=== PATIENT | female | born 1945 | race Caucasian/White ===

== ENCOUNTER 2016-09-17 08:42 | Inpatient (IN) ==
--- NOTE | 2016-09-17 09:23 | Emergency Department Note ---
Syncope HPI - General Chief Complaint: Dizziness Stated Complaint: Dizziness Time Seen by Provider: 09/17/16 09:07 Source: patient, family Mode of arrival: wheelchair Limitations: no limitations - History of Present Illness HPI Narrative: 71-year-old female with seven-day history of flulike illness. Went to the emergency department in [facility] while visiting her other daughter they prescribed her Tamiflu. She has not been getting much better though she complains of lightheadedness and headache pressure and head. No current cough or coryza or fever. Her daughter reports that she is becoming more forgetful and she's lost 20-30 pounds not eating well. She has a prior history of hypertension but is not currently taking her medicines as her blood pressure has been normal - Related Data Home Medications Medication Instructions Recorded Confirmed Losartan/Hydrochlorothiazide 1 each PO DAILY 04/02/16 09/17/16 [Losartan-Hctz 100-12.5 mg Tab] Atorvastatin [Lipitor] 80 mg PO HS 09/17/16 09/17/16 Allergies Allergy/AdvReac Type Severity Reaction Status Date / Time No Known Drug Allergies Allergy Verified 09/17/16 08:46 Review of Systems All systems ED: reviewed and negative except as stated. Past Medical History - Past Medical History Attestation: Yes: The following information was validated with the patient. Medical history: Reports: DVT (used to be on Coumadin), hyperlipidemia, hypertension Surgical history ED: Reports: - Social History smoking status: Never smoker Physical Exam Normocephalic atraumatic. Conjunctiva clear sclerae white and anicteric. No nasal discharge or congestion. Oropharynx is pink and moist. Bilateral tympanic membranes are normal with copious cerumen. Neck is supple without lymphadenopathy or thyromegaly. Heart is somewhat irregular rhythm without significant murmur. Lungs are clear to auscultation bilaterally without wheezes rales rhonchi or respiratory distress. +2 radial pulse. She does have slightly more edema on the left leg than the right but this is just trace. She is alert and oriented. Adequate strength bilateral arms and legs. Face is symmetrical does no dysarthria tremor or ataxia. Cranial nerves II through XII are grossly intact. She does seem to have some short-term memory issues having to rely on her children for her history - General Limitations: no limitations Course Vital Signs Temperature 96.7 F L 09/17/16 08:43 Pulse Rate 61 09/17/16 08:43 Respiratory Rate 16 09/17/16 08:43 Blood Pressure 107/57 09/17/16 08:43 Pulse Oximetry (%) 99 09/17/16 08:43 Temperature 96.7 F L 09/17/16 08:43 Pulse Rate 140 H 09/17/16 10:35 Respiratory Rate 16 09/17/16 08:43 Blood Pressure 125/84 09/17/16 10:35 Pulse Oximetry (%) 99 09/17/16 10:35 Syncope - Lab Data Lab results reviewed: Yes I reviewed the patient's lab results. Result diagrams: 09/17/16 09:31 Lab Results 09/17/16 09/17/16 Range/Units 09:30 09:31 WBC 8.1 (4.5-11.0) K/mcL RBC 4.11 (4.00-5.20) M/mcL Hgb 11.8 L (12.0-15.0) g/dL Hct 36.0 (36.0-48.0) % POC Hct 37.0 (36.0-48.0) % MCV 87.7 (80.0-100.0) fL MCH 28.7 (26.0-34.0) pg MCHC 32.8 (31.0-36.0) g/dL RDW 13.1 (11.5-14.5) % Plt Count 387 (140-440) K/mcL MPV 8.3 (7.4-10.4) fL Gran % 63.6 (38.0-78.0) % Lymph % (Auto) 27.6 (15.5-49.0) % [place] % (Auto) 7.9 (1.0-9.0) % Eos % (Auto) 0.6 (0.0-7.0) % Baso % (Auto) 0.3 (0.0-2.0) % Gran # 5.1 (1.8-8.0) K/mcL Lymph # 2.2 (1.5-4.8) K/mcL [place] # 0.6 (0.1-0.9) K/mcL Eos # 0.1 (0.0-0.7) K/mcL Baso # 0 (0.0-0.3) K/mcL POC Sodium 138 (133-145) mmol/L POC Potassium 3.4 (3.3-5.1) mmol/L POC Chloride 100 (96-108) mmol/L POC Total CO2 26 (22-30) mmol/L POC BUN 28 H (8-23) mg/dl POC Creatinine 1.1 (0.6-1.1) mg/dl POC Glucose 110 H (70-105) mg/dL POC WB Ioniz Calcium 1.07 L (1.16-1.32) mmol/L - Radiology Data Radiology results reviewed: Yes I reviewed the patient's radiology results. CT scan of the head shows no acute abnormality but small old infarcts - EKG Data EKG attestation: Yes I reviewed and interpreted this EKG. EKG results narrative: EKG shows a rate of 161 with atrial fibrillation no sign of ischemia Rate: tachycardia Rhythm: A.Fib Disposition Clinical Impression: Influenza A, Atrial fibrillation with RVR Summary: She is already on Tamiflu for influenza diagnosed in [facility]. Found to be in atrial fibrillation with rapid ventricular response. Did not respond completely to max dose diltiazem drip so added metoprolol. start eliquis. Cannot cardiovert because it's not clear how long she's been in atrial fibrillation Discussed case with hospitalist Dr. Pulliam who agreed to accept patient for further care and evaluation Disposition: Xfer As Inpt ([facility]) Condition: Serious Referrals: Jose Alberto Read MD [Primary Care Provider] - Aron Avelar MD [Physician] -
[2016-09-17] MEDS ORDERED: APIXABAN 5 MG TABLET PO ONE (09:30)
[2016-09-17] MEDS ORDERED: DILTIAZEM 125 MG in 0.9 % SODIUM CHLORIDE 100 ML IV SCH (09:30)
[2016-09-17 10:12] LABS: Basophils # (Auto) 0 K/mcL (0.0-0.3); Basophils % (Auto) 0.3 % (0.0-2.0); Eosinophils # (Auto) 0.1 K/mcL (0.0-0.7); Eosinophils % (Auto) 0.6 % (0.0-7.0); Granulocytes % (Auto) 63.6 % (38.0-78.0); Lymphocytes # (Auto) 2.2 K/mcL (1.5-4.8); Lymphocytes % (Auto) 27.6 % (15.5-49.0); Mean Cell Volume 87.7 fL (80.0-100.0); Mean Corpuscular HGB Conc 32.8 g/dL (31.0-36.0); Mean Corpuscular Hemoglobin 28.7 pg (26.0-34.0); Monocytes # (Auto) 0.6 K/mcL (0.1-0.9); Monocytes % (Auto) 7.9 % (1.0-9.0); Platelet Count 387 K/mcL (140-440); RBC 4.11 M/mcL (4.00-5.20); Red Cell Distribution Width 13.1 % (11.5-14.5)
--- NOTE | 2016-09-17 10:30 | Cat Scan Report ---
CLINICAL INFORMATION: There the COMPARISON: None. TECHNIQUE: 2.5 mm helical slices were obtained in the skull base to vertex. Following reconstruction, axial reformatted images were reviewed at bone and parenchymal windows. FINDINGS: The ventricles, sulci, fissures, and cisterns are symmetrically enlarged compatible with mild age-related atrophy - no extra-axial fluid collections or masses are appreciated. Small remote cortical-based infarcts in the the posterior left frontal lobe, the parafalcine right frontal lobe and the right occipital lobe are appreciated noted. There are patchy chronic ischemic changes in the the cerebral white matter. A few remote lacunar infarcts in the basal ganglia and the cerebral white matter are also appreciated. There is no intracerebral hemorrhage, mass effect or edema. Bone windows show no osseous abnormality IMPRESSION: No acute cerebral hemorrhage or other acute finding. Chronic findings - as described. Interpreted and Authenticated by: Cr Beard 09/17/16
[2016-09-17] MEDS ORDERED: METOPROLOL TARTRATE 5 MG/5 ML VIAL IV ONE (11:12)
[2016-09-17] MEDS: METOPROLOL TARTRATE 5 MG/5 ML VIAL IV SCH ×5 (11:39→14:25)
--- NOTE | 2016-09-17 11:40 | XRay Report ---
CLINICAL INFORMATION: Weakness and dizziness COMPARISON: None. FINDINGS: Small hiatal hernia is appreciated. The remaining cardiomediastinal silhouette and pulmonary vessels are normal. The lungs are clear. No effusions. There is a 1 cm calcification triangulated over the right renal pelvis which may represent a stone IMPRESSION: 1. No acute cardiopulmonary disease 2. Small hiatal hernia 3. 1 cm calcification right upper quadrant of the abdomen - likely a stone in the right renal pelvis Interpreted and Authenticated by: Cr Beard 09/17/16
[2016-09-17] MEDS ORDERED: ONDANSETRON 4 MG/2 ML VIAL IV PRN (12:57)
[2016-09-17] MEDS ORDERED: IPRATROPIUM/ALBUTEROL 3 ML AMPUL.NEB NEB PRN (12:57)
[2016-09-17] MEDS ORDERED: ACETAMINOPHEN 325 MG TABLET PO PRN (12:57)
[2016-09-17] MEDS ORDERED: POTASSIUM CHLORIDE 20 MEQ PACKET PO PRN (12:57)
[2016-09-17] MEDS ORDERED: MAGNESIUM SULFATE 2 GM/50 ML BAG IV PRN (12:57)
[2016-09-17] MEDS ORDERED: ACETAMINOPHEN 1,000 MG/100 ML BOTTLE IV PRN (12:57)
[2016-09-17] MEDS ORDERED: guaiFENesin/CODEINE 10 ML UDC PO PRN (12:57)
[2016-09-17 13:27] LABS: C-Reactive Protein 7.8 mg/dl (0.0-0.8)
--- NOTE | 2016-09-17 13:31 | History and Physical Report ---
DATE OF ADMISSION: 09/17/2016 REASON FOR ADMISSION: Palpitation, weakness, lightheadedness. HISTORY OF CHIEF COMPLAINT: The patient is a 71-year-old who was recently diagnosed with influenza and pneumonia and came back from [place] after she had been recovering on Tamiflu. However, over the last 24 hours, the patient has been getting increasingly lightheaded, dizzy and has inability to function. She does not endorse to high grade fever, diarrhea or dysuria, but endorses lack of appetite. No vision change or unilateral weakness. She further denies diarrhea, incontinence, vision changes. Initial evaluation in the ER revealed atrial fibrillation with rapid ventricular rate over 140. Patient was started on diltiazem drip. However, there was inadequate response to 20 mg diltiazem drip, and subsequently patient received one dose of metoprolol with improved rate control around 120. Hospitalist Service was consulted. At the time of examination, the patient is alert and oriented. She was able to provide most of the history. She denies nausea or vomiting. She denies recent changes in medications, weight loss, heat intolerance. She denies prior similar episodes. REVIEW OF SYSTEMS: Ten-point review of system was performed and negative except the ones discussed above. PAST MEDICAL HISTORY: 1. Hypertension. 2. Hyperlipidemia. 3. History of DVT. Patient had been on Coumadin in the past. CURRENT MEDICATIONS: 1. Losartan/hydrochlorothiazide 20/12.5 mg daily. 2. Atorvastatin 80 mg daily. SOCIAL HISTORY: No history of smoking or alcoholism. Patient is . She has a son who lives in [place]. She is a FULL CODE STATUS. She sees primary care physician, Dr. Read. ALLERGIES: None. PHYSICAL EXAMINATION: GENERAL: The patient is alert and oriented. Thin. BMI 18.9. Height 5 feet 4 inches. VITAL SIGNS: Blood pressure 108/87, respiratory rate 14, temperature 96.7, pulse down from 140s to 110, irregular, sats 98% on room air. HEENT: Pupils symmetric. Oral cavity is dry. No ear or nose discharge. Head is normocephalic and atraumatic. NECK: No lymphadenopathy. JVD noted mid neck. HEART: S1, S2, regular rhythm. No murmur. CHEST: Clear to auscultation. ABDOMEN: Soft and nontender. LOWER EXTREMITIES: No cyanosis or clubbing. No joint swelling. Dry skin, but no lymphedema. SKIN: Otherwise, no suspicious lesions. PSYCHIATRIC: Alert and cooperative. No anxiety. NEURO: Nonfocal. LABS AND IMAGING: White count 8.1, hemoglobin 11.8, platelets 387. Sodium 130, potassium 2.4, creatinine 1.1, and BUN 28. X-ray chest unremarkable. EKG: Atrial fibrillation with RVR. Head CT: No acute process. ASSESSMENT AND PLAN: A 71-year-old with recent influenza admitted with atrial fibrillation with RVR. 1. Atrial fibrillation with RVR. Unclear etiology, possibly triggered by acute influenza. However, rule out cardiac etiology. Echocardiogram to evaluate valvular and left atrial architecture. TSH to rule out hypothyroidism. No recent medications that can be attributed to present symptoms. The patient's CHADS score is 2, mandating anticoagulation. The patient was already started on Eliquis by ER physician, Dr. Rios. Stroke risk was assessed and explained to the patient and need for long-term anticoagulation if patient does not convert to normal sinus. 3. History of hypertension. Continue prior home medication. 4. Hyperlipidemia. Continue statin. PLAN FOR TODAY: 1. Admit as inpatient. 2. Rate control measures. 3. Echocardiogram. 4. Anticoagulation for CVA prophylaxis. 5. Telemetry monitoring. 6. Preexisting medical condition management as above. AA:jean paul Job ID: [id number] Doc ID: [id number] Aron Read MD
[2016-09-17] MEDS: 0.9 % SODIUM CHLORIDE 10 ML SYRINGE IV SCH ×2 (14:00→21:21)
[2016-09-17] MEDS ORDERED: METOPROLOL TARTRATE 25 MG TABLET PO ONE (16:17)
[2016-09-17] MEDS ORDERED: traZODone HCL 50 MG TABLET PO PRN (21:00)
[2016-09-17] MEDS: DILTIAZEM 125 MG in 0.9 % SODIUM CHLORIDE 100 ML IV SCH (21:17)
[2016-09-17] MEDS: APIXABAN 5 MG TABLET PO SCH (21:21)
[2016-09-17] MEDS: ATORVASTATIN 40 MG TABLET PO SCH (21:21)
[2016-09-17] MEDS: DOCUSATE SODIUM 100 MG CAPSULE PO SCH (21:21)
[2016-09-17] MEDS: SENNOSIDES/DOCUSATE SODIUM 1 TAB TABLET PO SCH (21:21)
[2016-09-17] MEDS: OSELTAMIVIR PHOSPHATE 75 MG CAPSULE PO SCH (21:21)
[2016-09-18] MEDS: METOPROLOL TARTRATE 25 MG TABLET PO SCH ×3 (01:08→20:23)
[2016-09-18] MEDS ORDERED: DILTIAZEM 125 MG/25 ML VIAL IV ONE (02:48)
[2016-09-18 05:18] LABS: Mean Cell Volume 87.8 fL (80.0-100.0); Mean Corpuscular HGB Conc 32.6 g/dL (31.0-36.0); Mean Corpuscular Hemoglobin 28.6 pg (26.0-34.0); Platelet Count 328 K/mcL (140-440); RBC 3.68 M/mcL (4.00-5.20); Red Cell Distribution Width 12.5 % (11.5-14.5)
[2016-09-18 05:38] LABS: ALT/SGPT 44 U/l (0-40); Albumin 3.2 gm/dL (3.2-5.2); Albumin/Globulin Ratio 1.1 (1.0-2.3); Alkaline Phosphatase 134 U/L (39-117); Bilirubin,Direct < 0.2 mg/dL (0.0-0.3); Blood Urea Nitrogen 20 mg/dl (8-23); Gamma Glutamyl Transpeptidase 75 U/L (5-36); Magnesium 1.9 mg/dL (1.6-2.5); Phosphorous 2.5 mg/dL (2.7-4.5); Uric Acid 3.3 mg/dL (2.5-8.0)
[2016-09-18 06:05] LABS: Lymphocytes % 30 % (15-49); Monocytes % (Manual) 5 % (1-9); Platelet Estimate NORMAL (NORMAL); RBC Morphology NORMAL (NORMAL); Segmented Neutrophils % 65 % (38-78)
[2016-09-18] MEDS: DILTIAZEM 125 MG in 0.9 % SODIUM CHLORIDE 100 ML IV SCH ×2 (07:15→09:05)
[2016-09-18] MEDS ORDERED: HYDROCHLOROTHIAZIDE 12.5 MG CAPSULE PO SCH (09:00)
[2016-09-18] MEDS: DOCUSATE SODIUM 100 MG CAPSULE PO SCH ×2 (09:04→20:24)
[2016-09-18] MEDS ORDERED: METOPROLOL TARTRATE 50 MG TABLET PO ONE (09:06)
[2016-09-18] MEDS ORDERED: METOPROLOL TARTRATE 25 MG TABLET PO ONE (09:15)
[2016-09-18] MEDS: DILTIAZEM 30 MG TABLET PO SCH ×3 (09:38→20:23)
[2016-09-18] MEDS: OSELTAMIVIR PHOSPHATE 75 MG CAPSULE PO SCH ×2 (09:38→20:26)
[2016-09-18] MEDS: LOSARTAN 50 MG TABLET PO SCH (09:39)
[2016-09-18] MEDS: 0.9 % SODIUM CHLORIDE 10 ML SYRINGE IV SCH ×4 (09:39→20:24)
[2016-09-18] MEDS: APIXABAN 5 MG TABLET PO SCH ×2 (09:39→20:22)
[2016-09-18] MEDS: MULTIVIT,THER IRON,CA,FA & MIN 1 TABLET PO SCH (09:39)
--- NOTE | 2016-09-18 10:06 | Internal Med Progress Note ---
Medical - PN: Subj Patient information: Note initiated : 09/18/16 at 10:01 am Service Date, if different from initiated Date: [] Patient: Radha Boss 71 y/o F admitted on 09/17/16 for Dizziness. Chief Complaint: [] Interval history: 09/17-patient admitted with Hank smith with RVR /lightheadedness and dizziness. Recent influenza pneumonia on Tamiflu. On diltiazem drip. Started on Eliquis based on chads score 2. continue telemetry monitoring along with rate control measures. Transition to oral rate control agents. Echocardiogram to evaluate left atrial/valvular architecture. normal TSH. elevated ESR at 113. Normal pro- calcitonin. C. difficile negative. 09/18- Weaning diltiazem drip. Await echo. Multiple family members at bedside. CT head reviewed with old lacunar infarcts. mild elevation in LFTs with AST 50 ALT 44. CRP 7.8. increased dose of oral metoprolol. start by mouth Cardizem. - Constitutional Vitals: Vital Signs Temp Pulse Resp BP Pulse Ox 98.6 F 110 H 16 108/81 97 09/18/16 05:39 09/18/16 05:39 09/18/16 05:39 09/18/16 05:39 09/18/16 05:39 Period Temp Pulse Resp BP Sys/Coleman Pulse Ox Last 24 Hr 98.5 F-99.3 F 54-111 16-20 101-166/63-88 96-99 Intake and Output 09/17/16 09/18/16 09/18/16 21:59 05:59 13:59 Intake Total 686 / 686 Output Total 225 / 225 450 / 450 275 / 275 Balance 461 / 461 -450 / -450 -248 / -248 Weight 129 lb 1.6 oz Intake & Output: Intake & Output 09/17/16 09/18/16 09/18/16 21:59 05:59 13:59 Intake Total 686 / 686 Output Total 225 / 225 450 / 450 275 / 275 Balance 461 / 461 -450 / -450 -248 / -248 Weight 129 lb 1.6 oz Intake: IV Cardizem 125 mg In Sodium Chloride 0.9% 100 ml @ 5 MG/HR 5 mls/hr IV Q12 [facility] Rx#:[id number] Oral 680 / 680 Output: Void Amount 225 / 225 0 / 0 Urine/Stool Mix 450 / 450 275 / 275 Other: Percent of Meal Consumed 25% Feeding Ability Independent General appearance: cooperative, no acute distress Exam: alert oriented nonlabored breathing Short-lived spell of confusion this morning No lightheadedness or dizziness Rate around 110 Medical - PN: Obj Da - Labs CBC & Chem 7: 09/18/16 04:15 09/18/16 04:15 Labs: Abnormal Lab Results 09/18/16 09/18/16 04:15 04:15 RBC 3.68 L Hgb 10.5 L Hct 32.3 L Calcium 8.5 L Phosphorus 2.5 L GGT 75 H AST 50 H ALT 44 H Alkaline Phosphatase 134 H Meds: Medications Acetaminophen (Tylenol) 650 mg PO Q4-6HP PRN PRN Reason: PAIN/FEVER > 101 Albuterol/Ipratropium (Duoneb) 3 ml NEB Q4HP PRN PRN Reason: Shortness Of Breath Atorvastatin Calcium (Lipitor) 80 mg PO HS [facility] Last Admin: 09/17/16 21:21 Dose: 80 mg Diltiazem HCl (Cardizem) 30 mg PO Q6H [facility] Last Admin: 09/18/16 09:38 Dose: 30 mg Docusate Sodium (Colace) 100 mg PO BID [facility] Last Admin: 09/18/16 09:04 Dose: Not Given Guaifenesin/Codeine Phosphate (Robitussin Ac) 10 ml PO Q4HP PRN PRN Reason: Cough Hydrochlorothiazide (Oretic) 12.5 mg PO DAILY [facility] Last Admin: 09/18/16 09:38 Dose: 12.5 mg Diltiazem HCl 125 mg/ Sodium (Chloride) 125 mls @ 5 mls/hr IV Q12 YULIYA; 5 MG/HR PRN Reason: Protocol Last Admin: 09/18/16 09:05 Dose: 15 mg/hr, 15 mls/hr Magnesium Sulfate (Magnesium Sulfate) 2 gm in 50 mls @ 50 mls/hr IV UD PRN PRN Reason: MG = or < 1.7 Acetaminophen (Ofirmev) 1,000 mg in 100 mls @ 200 mls/hr IV Q6HP PRN PRN Reason: PAIN/FEVER > 101 Iron Carb/Multivit/Hospitality Director/Folic Acid (Multivitamin W/Minerals) 1 tab PO DAILY [facility] Last Admin: 09/18/16 09:39 Dose: 1 tab Losartan Potassium (Cozaar) 100 mg PO DAILY [facility] Last Admin: 09/18/16 09:39 Dose: 100 mg Metoprolol Tartrate (Lopressor) 50 mg PO BID [facility] Ondansetron HCl (Zofran) 4 mg IV Q4-6HP PRN PRN Reason: Nausea And Vomiting Oseltamivir Phosphate (Tamiflu) 75 mg PO BID [facility] Last Admin: 09/18/16 09:38 Dose: 75 mg Potassium Chloride (Klor-Con) 40 meq PO DAILYP PRN PRN Reason: K+ < 3.5 Senna/Docusate Sodium (Senna Plus Tablet) 1 tab PO HS [facility] Last Admin: 09/17/16 21:21 Dose: 1 tab Sodium Chloride (Saline Flush) 10 ml IV Q8 [facility] Last Admin: 09/18/16 09:39 Dose: 10 ml Trazodone HCl (Desyrel) 50 mg PO HSP PRN PRN Reason: Insomnia Medical - PN: A/P - Time Spent With Patient Total time spent is greater than 50% in coordination of care (as documented) at patient's floor/unit and/or counseling patient: 25 - 35 minutes (1) Atrial fibrillation with RVR Status: Acute Assessment and plan: * A. fib with RVR- on rate control measures. Wean diltiazem drip. Await echocardiogram. Chads score 2 mandates anticoagulation. On Eliquis. Discussed risk and benefits of anticoagulation including life-threatening hemorrhage/ intracranial hemorrhage and even . Patient agreeable to anticoagulation continue for stroke prophylaxis. * acute viral syndrome from influenza-continue supportive management * hypertension on beta juani/ARB. discontinue thiazide * Full CODE STATUS Plan * Transition to oral rate control measures * Stroke prophylaxis * Discontinue thiazide * Possible discharge in 24-48 hours with adequate rate control with PCP/ cardiology outpatient follow-up Current Visit: Yes Medical - PN: Qual - VTE Deep Vein Thrombosis/Pulmonary Embolism Present on Admission: No
[2016-09-18] MEDS: 0.9 % SODIUM CHLORIDE 250 ML IV SCH (12:39)
--- NOTE | 2016-09-18 15:43 | Echocardiogram Report ---
ECHOCARDIOGRAM: 2-D and M-mode echocardiography with cardiac Doppler and color flow imaging were performed with a [employer] A[employer] MX. INDICATION: Atrial fibrillation. Overall and size of the 4 cardiac chambers and aortic root appeared normal as did LV wall thickness. Systolic performance appeared vigorous. Estimated ejection fraction is 70%. The aortic valve appeared trileaflet. Moderate leaflet calcification was present. Valve opening appeared adequate and there was no evidence for aortic stenosis or aortic regurgitation by Doppler interrogation. The mitral and tricuspid valves appear unremarkable. Doppler interrogation of LV inflow disclosed a monophasic spectral dispersion pattern related to absent AV synchrony. Mitral regurgitation, probably trivial, was demonstrated. Pulmonary venous interrogation disclosed Keppra \\"d\\" wave dominance suggesting elevated pulmonary wedge pressure. The pulmonic valve showed absent \\"a\\" wave in the absence of AV synchrony. Pulmonary artery acceleration time appeared shortened but was difficult to measure. There was no evidence for pulmonic stenosis or pulmonic regurgitation. Tricuspid regurgitation, probably trivial, was noted. No intracardiac shunting was appreciated. There was no evidence of pericardial effusion. The IVC was narrow and showed normal respiratory variation. Atrial fibrillation with a rapid response was present. CONCLUSIONS: Moderate aortic leaflet calcification with adequate valve opening. Possible elevated pulmonary wedge pressure. (See accompanying M-mode and Doppler reports for quantitation.) ECHOCARDIOGRAPHY M-MODE CALCULATIONS: HT: 5'4\\" WT: 110 BSA: 1.52 NORMALS AORTA: AORTIC ROOT 2.5 2.0-3.7 cm LEFT ATRIUM 3.3 1.9-4.0 cm MITRAL VALVE: EXCURSION 1.8 1.9-2.7 cm EPSS 0.2 <0.5 cm LT VENTRICLE: LVID (ED) 3.2 3.5-5.7 cm LVID (ES) 1.6 SEPTAL THICKNESS 0.9 0.6-1.1 cm SEPTAL EXCURSION 0.6 0.3-0.8 cm LVPW THICKNESS 0.9 0.6-1.1 cm LVPW EXCURSION 1.0 0.9-1.4 cm MINOR AXIS FS 5.0 25%-40% RT VENTRICLE: RVID (ED) 1.2 0.9-2.6 cm(up to 3cm if LLD) QUALITATIVE DOPPLER FLOW STUDIES MITRAL VALVE MR, probably trivial AORTIC VALVE TRICUSPID VALVE TR, probably trivial PULMONIC VALVE QUANTITATIVE DOPPLER FLOW STUDIES SAMPLE SITES VELOCITIES PEAK PRESSURE VALVE AREA and/or VALVE WINDOW (PEAK,M/SEC) DROP (GRADIENT) PRESSURE HALF-TIME MV (Diastole) 1.2 (E) --(A) MV (Systole) 3.3 AO (Diastole) -- AO (Systole) 1.3 TV (Systole) 2.0 PV (Systole) 0.7 PV (Diastole) -- LWG:mirta Job ID: [id number] Doc ID: [id number] Van Pham MD
[2016-09-18] MEDS: ATORVASTATIN 40 MG TABLET PO SCH (20:22)
[2016-09-18] MEDS: SENNOSIDES/DOCUSATE SODIUM 1 TAB TABLET PO SCH (20:24)
[2016-09-19] MEDS: 0.9 % SODIUM CHLORIDE 250 ML IV SCH ×2 (01:09→14:01)
[2016-09-19] MEDS: DILTIAZEM 30 MG TABLET PO SCH ×2 (03:43→09:15)
[2016-09-19] MEDS: 0.9 % SODIUM CHLORIDE 10 ML SYRINGE IV SCH ×5 (05:34→21:10)
[2016-09-19 06:17] LABS: Appearance,Urine HAZY; Bacteria,Urine FEW /hpf (0); Bilirubin,Urine NEG (NEG); Color,Urine YELLOW; Glucose,Urine (UA) 50 mg/dL (NEG); Leukocyte Esterase,Urine 500 /uL (NEG); Mucus,Urine MOD /hpf (0); Nitrate,Urine NEG (NEG); Protein,Urine NEG (NEG); Specific Gravity,Urine 1.013 (1.000-1.035); Urine Blood NEG mg/dL (<0.03); Urine Hyaline Cast 3 /lpf (0-2); Urine RBC 13 /hpf (0-1); Urine Squamous Epithelial Cell 3 /hpf (0-4); Urine Transitional Epi Cells 1 /hpf (0-2); Urine WBC 93 /hpf (0-4); Urobilinogen,Urine NEG (NEG)
[2016-09-19 06:47] LABS: Mean Cell Volume 85.5 fL (80.0-100.0); Mean Corpuscular Hemoglobin 29.1 pg (26.0-34.0); Platelet Count 411 K/mcL (140-440); RBC 3.61 M/mcL (4.00-5.20); Red Cell Distribution Width 12.3 % (11.5-14.5)
[2016-09-19 07:24] LABS: ALT/SGPT 41 U/l (0-40); Albumin 3.1 gm/dL (3.2-5.2); Alkaline Phosphatase 144 U/L (39-117); Bilirubin,Direct < 0.2 mg/dL (0.0-0.3); Blood Urea Nitrogen 18 mg/dl (8-23); Gamma Glutamyl Transpeptidase 79 U/L (5-36); Magnesium 1.9 mg/dL (1.6-2.5); Phosphorous 2.5 mg/dL (2.7-4.5); Uric Acid 3.1 mg/dL (2.5-8.0)
[2016-09-19 08:17] LABS: Lymphocytes % 23 % (15-49); Monocytes % (Manual) 9 % (1-9); Platelet Estimate NORMAL (NORMAL); RBC Morphology NORMAL (NORMAL); Segmented Neutrophils % 68 % (38-78)
[2016-09-19] MEDS: LOSARTAN 50 MG TABLET PO SCH (08:42)
[2016-09-19] MEDS: OSELTAMIVIR PHOSPHATE 75 MG CAPSULE PO SCH ×2 (08:42→21:08)
[2016-09-19] MEDS: METOPROLOL TARTRATE 25 MG TABLET PO SCH ×2 (08:42→21:10)
[2016-09-19] MEDS: MULTIVIT,THER IRON,CA,FA & MIN 1 TABLET PO SCH (08:42)
[2016-09-19] MEDS: APIXABAN 5 MG TABLET PO SCH (09:16)
[2016-09-19] MEDS: DOCUSATE SODIUM 100 MG CAPSULE PO SCH ×2 (09:16→21:01)
[2016-09-19] MEDS: cefTRIAXone 2 GM in DEXTROSE 5% IN WATER 50 ML IV SCH (09:56)
[2016-09-19] MEDS ORDERED: SODIUM CHLORIDE 0.9% IV SCH (10:00)
[2016-09-19] MEDS ORDERED: GENTAMICIN SULFATE IV SCH (10:00)
[2016-09-19] MEDS: DILTIAZEM 125 MG in 0.9 % SODIUM CHLORIDE 100 ML IV SCH ×2 (10:15→21:10)
--- NOTE | 2016-09-19 11:10 | Internal Med Progress Note ---
Medical - PN: Subj Patient information: Note initiated : 09/19/16 at 11:10 am Service Date, if different from initiated Date: [] Patient: Radha Boss 71 y/o F admitted on 09/17/16 for Dizziness. Chief Complaint: [] Interval history: 09/17-patient admitted with A. fib with RVR /lightheadedness and dizziness. Recent influenza pneumonia on Tamiflu. On diltiazem drip. Started on Eliquis based on chads score 2. continue telemetry monitoring along with rate control measures. Transition to oral rate control agents. Echocardiogram to evaluate left atrial/valvular architecture. normal TSH. elevated ESR at 113. Normal pro- calcitonin. C. difficile negative. 09/18- Weaning diltiazem drip. Await echo. Multiple family members at bedside. CT head reviewed with old lacunar infarcts. mild elevation in LFTs with AST 50 ALT 44. CRP 7.8. increased dose of oral metoprolol. start by mouth Cardizem. 09/19- patient converted to sinus rhythm. pyuria on UA. Febrile at 100. Started on antibiotic coverage. discontinued diltiazem. continue metoprolol for hypertension. DC anticoagulation unless evidence of paroxysmal A. fib. no other concerns per staff. Patient intimately confused. Discussed treatment plan including CT results with family. Anticipate discharge in 24 hours if afebrile and clinically improved. urine cultures pending - Constitutional Vitals: Vital Signs Temp Pulse Resp BP Pulse Ox 98.6 F 75 18 153/93 95 09/19/16 03:01 09/19/16 06:30 09/19/16 03:01 09/19/16 03:01 09/19/16 06:30 Period Temp Pulse Resp BP Sys/Coleman Pulse Ox Last 24 Hr 98.6 F-101.0 F 72-94 16-20 96-153/62-98 95-100 Intake and Output 09/18/16 09/19/16 09/19/16 21:59 05:59 13:59 Intake Total 1004 / 1004 0 / 0 Output Total 600 / 600 Balance 1004 / 1004 -600 / -600 0 / 0 Weight 130 lb 9.6 oz Intake & Output: Intake & Output 09/18/16 09/19/16 09/19/16 21:59 05:59 13:59 Intake Total 1004 / 1004 0 / 0 Output Total 600 / 600 Balance 1004 / 1004 -600 / -600 0 / 0 Weight 130 lb 9.6 oz Intake: IV 64 / 64 0 / 0 Sodium Chloride 0.9% 250 44 / 44 0 / 0 ml @ 20 mls/hr IV . [id number] [facility] Rx#:[id number] Cardizem 125 mg In Sodium 20 / 20 0 / 0 Chloride 0.9% 100 ml @ 5 MG/HR 5 mls/hr IV Q12 [facility] Rx#:[id number] Oral 940 / 940 Output: Void Amount 600 / 600 Other: Meal Dinner Percent of Meal Consumed 25% Feeding Ability Assist with Tray Set Up Medical - PN: Obj Da - Labs CBC & Chem 7: 09/19/16 04:08 09/19/16 04:08 Labs: Abnormal Lab Results 09/19/16 09/19/16 09/19/16 04:08 04:08 04:08 RBC 3.61 L Hgb 10.5 L Hct 30.9 L Calcium Phosphorus 2.5 L GGT 79 H AST 38 H ALT 41 H Alkaline Phosphatase 144 H Albumin 3.1 L Urine Glucose (UA) 50 A Ur Leukocyte Esterase 500 A Urine RBC 13 H Urine WBC 93 H Urine Bacteria Few A Hyaline Casts 3 H 09/18/16 09/18/16 04:15 04:15 RBC 3.68 L Hgb 10.5 L Hct 32.3 L Calcium 8.5 L Phosphorus 2.5 L GGT 75 H AST 50 H ALT 44 H Alkaline Phosphatase 134 H Albumin Urine Glucose (UA) Ur Leukocyte Esterase Urine RBC Urine WBC Urine Bacteria Hyaline Casts Meds: Medications Acetaminophen (Tylenol) 650 mg PO Q4-6HP PRN PRN Reason: PAIN/FEVER > 101 Albuterol/Ipratropium (Duoneb) 3 ml NEB Q4HP PRN PRN Reason: Shortness Of Breath Atorvastatin Calcium (Lipitor) 80 mg PO HS [facility] Last Admin: 09/18/16 20:22 Dose: 80 mg Docusate Sodium (Colace) 100 mg PO BID [facility] Last Admin: 09/19/16 09:16 Dose: Not Given Guaifenesin/Codeine Phosphate (Robitussin Ac) 10 ml PO Q4HP PRN PRN Reason: Cough Diltiazem HCl 125 mg/ Sodium (Chloride) 125 mls @ 5 mls/hr IV Q12 YULIYA; 5 MG/HR PRN Reason: Protocol Last Admin: 09/19/16 10:15 Dose: Not Given Magnesium Sulfate (Magnesium Sulfate) 2 gm in 50 mls @ 50 mls/hr IV UD PRN PRN Reason: MG = or < 1.7 Acetaminophen (Ofirmev) 1,000 mg in 100 mls @ 200 mls/hr IV Q6HP PRN PRN Reason: PAIN/FEVER > 101 Sodium Chloride (Sodium Chloride 0.9%) 250 mls @ 20 mls/hr IV .[id number] [facility] Last Infusion: 09/19/16 07:00 Dose: Infused Gentamicin Sulfate 170 mg/ (Sodium Chloride) 254.25 mls @ 250 mls/hr IV ONCE YULIYA Ceftriaxone Sodium 2 gm/ (Dextrose) 50 mls @ 100 mls/hr IV DAILY [facility] Last Admin: 09/19/16 09:56 Dose: 100 mls/hr Iron Carb/Multivit/Adeline/Folic Acid (Multivitamin W/Minerals) 1 tab PO DAILY [facility] Last Admin: 09/19/16 08:42 Dose: 1 tab Losartan Potassium (Cozaar) 100 mg PO DAILY [facility] Last Admin: 09/19/16 08:42 Dose: 100 mg Metoprolol Tartrate (Lopressor) 50 mg PO BID [facility] Last Admin: 09/19/16 08:42 Dose: 50 mg Ondansetron HCl (Zofran) 4 mg IV Q4-6HP PRN PRN Reason: Nausea And Vomiting Oseltamivir Phosphate (Tamiflu) 75 mg PO BID [facility] Last Admin: 09/19/16 08:42 Dose: 75 mg Potassium Chloride (Klor-Con) 40 meq PO DAILYP PRN PRN Reason: K+ < 3.5 Senna/Docusate Sodium (Senna Plus Tablet) 1 tab PO HS [facility] Last Admin: 09/18/16 20:24 Dose: Not Given Sodium Chloride (Saline Flush) 10 ml IV Q8 [facility] Last Admin: 09/19/16 10:00 Dose: 10 ml Trazodone HCl (Desyrel) 50 mg PO HSP PRN PRN Reason: Insomnia Medical - PN: A/P - Time Spent With Patient Total time spent is greater than 50% in coordination of care (as documented) at patient's floor/unit and/or counseling patient: 25 - 35 minutes (1) Atrial fibrillation with RVR Status: Acute Assessment and plan: * Complicated UTI-start Rocephin/single-dose gentamicin. Await cultures * A. fib with RVR- converted to sinus rhythm. Discontinue diltiazem. echocardiogram unremarkable. Yet 65%.DC anticoagulation unless evidence of paroxysmal atrial fibrillation. * Acute viral syndrome from influenza-continue supportive management. clinically improved * Hypertension on beta juani/ARB. discontinue thiazide * history of dementia-likely multi-infarct as evident on CT and multiple lacunar CVA * history of CVA on CT head-continue statin. Initiated low-dose aspirin * Full CODE STATUS Plan * continue beta juani/ARB. Discontinue thiazide/CCB * Stroke prophylaxis * antibiotic coverage for UTI * Possible discharge in 24-48 hours with adequate rate control with PCP/ cardiology outpatient follow-up Current Visit: Yes Medical - PN: Qual - VTE Deep Vein Thrombosis/Pulmonary Embolism Present on Admission: No
[2016-09-19] MEDS: SENNOSIDES/DOCUSATE SODIUM 1 TAB TABLET PO SCH (21:02)
[2016-09-19] MEDS: ATORVASTATIN 40 MG TABLET PO SCH (21:08)
[2016-09-20] MEDS: 0.9 % SODIUM CHLORIDE 10 ML SYRINGE IV SCH ×2 (05:30→09:50)
[2016-09-20 05:43] LABS: Mean Cell Volume 84.7 fL (80.0-100.0); Mean Corpuscular Hemoglobin 29.6 pg (26.0-34.0); Platelet Count 435 K/mcL (140-440); RBC 3.34 M/mcL (4.00-5.20); Red Cell Distribution Width 12.5 % (11.5-14.5)
[2016-09-20 06:52] LABS: ALT/SGPT 39 U/l (0-40); Alkaline Phosphatase 152 U/L (39-117); Bilirubin,Direct < 0.2 mg/dL (0.0-0.3); Blood Urea Nitrogen 25 mg/dl (8-23); Gamma Glutamyl Transpeptidase 83 U/L (5-36); Magnesium 1.9 mg/dL (1.6-2.5); Phosphorous 3.1 mg/dL (2.7-4.5); Uric Acid 3.2 mg/dL (2.5-8.0)
[2016-09-20 07:00] LABS: Lymphocytes % 22 % (15-49); Monocytes % (Manual) 4 % (1-9); Platelet Estimate NORMAL (NORMAL); RBC Morphology NORMAL (NORMAL); Segmented Neutrophils % 74 % (38-78)
[2016-09-20] MEDS ORDERED: ASPIRIN 81 MG TAB.CHEW CHEWED SCH (09:00)
[2016-09-20] MEDS: 0.9 % SODIUM CHLORIDE 250 ML IV SCH (09:48)
[2016-09-20] MEDS: METOPROLOL TARTRATE 25 MG TABLET PO SCH (09:49)
[2016-09-20] MEDS: MULTIVIT,THER IRON,CA,FA & MIN 1 TABLET PO SCH (09:49)
[2016-09-20] MEDS: LOSARTAN 50 MG TABLET PO SCH (09:49)
[2016-09-20] MEDS: cefTRIAXone 2 GM in DEXTROSE 5% IN WATER 50 ML IV SCH (09:51)
[2016-09-20] MEDS: DOCUSATE SODIUM 100 MG CAPSULE PO SCH (09:53)
[2016-09-20] MEDS: OSELTAMIVIR PHOSPHATE 75 MG CAPSULE PO SCH (09:53)
--- NOTE | 2016-09-20 11:07 | Discharge Summary ---
Medical - DS: Prov Patient information: Note initiated : 09/20/16 at 11:04 am Service Date, if different from initiated Date: [] Patient: Radha Boss 71 y/o F admitted on 09/17/16 for Dizziness/AFib with RVR. Chief Complaint: [] Date of admission: 09/17/16 12:33 Primary care physician: [f_Reg Prim Care Provider] Medical - DS: Meds - Discharge Medications Active and Home Medications: Home Medications Atorvastatin [Lipitor] 80 mg PO HS 09/17/16 [History Confirmed 09/17/16 Last Taken Unknown] Medical - DS: Hosp Hospital course: Mr. Boss is a 71 year old male - Time Spent with Patient Total time spent providing and/or coordinating discharge services: Medical - DS: Exam - Constitutional Vitals: Vital Signs Temp Pulse Resp BP Pulse Ox 09/20/16 08:00 99.1 F 16 138/85 98 09/20/16 04:00 98.9 F 87 19 130/88 09/20/16 00:00 99.2 F 77 18 145/89 98 09/19/16 19:37 98.3 F 77 16 123/72 96 09/19/16 19:33 16 98 09/19/16 16:10 98.4 F 16 105/70 98 09/19/16 14:15 99.0 F 09/19/16 12:30 100.0 F H 16 126/77 100 Intake and Output 09/19/16 09/20/16 09/20/16 21:59 05:59 13:59 Intake Total 200 / 200 50 / 50 240 / 240 Output Total 125 / 125 525 / 525 Balance 75 / 75 50 / 50 -285 / -285 Intake: Oral 200 / 200 50 / 50 240 / 240 Output: Void Amount 125 / 125 75 / 75 Urine/Stool Mix 450 / 450 Other: Meal Breakfast Percent of Meal Consumed 25% Feeding Ability Assist with Tray Set Up # Bowel Movements 1 Weight 103 lb 8 oz Medical - DS: Data Labs on day of discharge: Labs from last 24 hours 09/20/16 09/20/16 09/20/16 04:05 04:05 04:05 WBC 9.7 RBC 3.34 L Hgb 9.9 L Hct 28.3 L MCV 84.7 MCH 29.6 MCHC 35.0 RDW 12.5 Plt Count 435 MPV 8.4 Total Counted 100 Seg Neutrophils % 74 Band Neutrophils % Not Reportable Lymphocytes % 22 Monocytes % (Manual) 4 Platelet Estimate Normal RBC Morphology Normal Sodium 140 Potassium 4.5 Chloride 96 Carbon Dioxide 29 Anion Gap 15.0 BUN 25 H Creatinine 0.9 GFR Calculation 65 Glucose 100 Uric Acid 3.2 Calcium 8.7 Phosphorus 3.1 Magnesium 1.9 Total Bilirubin 0.3 Direct Bilirubin < 0.2 GGT 83 H AST 34 ALT 39 Alkaline Phosphatase 152 H Lactate Dehydrogenase 182 Total Protein 6.0 Albumin 3.0 L Globulin 3.0 Albumin/Globulin Ratio 1.0 Triglycerides 59 TSH 1.05 Medical - DS: A/P - Problem Maintenance (1) Atrial fibrillation with RVR Status: Acute - Follow up Plan Follow up with: Jose Alberto Read MD [Primary Care Provider] - 09/28/16 11:00 am Rajendra Chowdhury [Physician] - 10/06/16 2:20 pm (Please arrive 15 min. early for paperwork.) Prognosis: Serious Medical - DS: Qual - VTE Deep Vein Thrombosis/Pulmonary Embolism Present on Admission: No
--- NOTE | 2016-09-20 11:12 | Discharge Summary ---
Medical - DS: Prov Patient information: Note initiated : 09/20/16 at 11:08 am Service Date, if different from initiated Date: [] Patient: Radha Boss a 71 y/o F admitted on 09/17/16 for Dizziness/AFib with RVR. Chief Complaint: [] Date of admission: 09/17/16 12:33 Discharge date: 09/20/16 Primary care physician: [f_Reg Prim Care Provider] Medical - DS: Meds - Discharge Medications Prescriptions: Aspirin [Durlaza] 162.5 mg PO DAILY #60 cap.er.24h Cefdinir 300 mg PO BID #6 capsule Losartan [Cozaar] 100 mg PO DAILY #30 tablet Metoprolol Tartrate [Lopressor] 25 mg PO BID #30 tablet Active and Home Medications: Home Medications Atorvastatin [Lipitor] 80 mg PO HS 09/17/16 [History Confirmed 09/17/16 Last Taken Unknown] Losartan [Cozaar] 100 mg PO DAILY #30 tablet 09/20/16 [Rx Last Taken Unknown] Metoprolol Tartrate [Lopressor] 25 mg PO BID #30 tablet 09/20/16 [Rx Last Taken Unknown] Medical - DS: Hosp Hospital course: DISCHARGE DIAGNOSIS * Complicated UTI-continue third-generation oral cephalosporin. Negative cultures to date. No fever * A. fib with RVR- converted to sinus rhythm. Continue metoprolol/losartan. * Acute viral syndrome from influenza-clinically resolved * Hypertension on beta juani/ARB. 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 * history of CVA on CT head-continue statin. Initiated low-dose aspirin BRIEF HOSPITAL COURSE 09/17-patient admitted with A. fib with RVR /lightheadedness and dizziness. Recent influenza pneumonia on Tamiflu. On diltiazem drip. Started on Eliquis based on chads score 2. continue telemetry monitoring along with rate control measures. Transition to oral rate control agents. Echocardiogram to evaluate left atrial/valvular architecture. normal TSH. elevated ESR at 113. Normal pro- calcitonin. C. difficile negative. 09/18- Weaning diltiazem drip. Await echo. Multiple family members at bedside. CT head reviewed with old lacunar infarcts. mild elevation in LFTs with AST 50 ALT 44. CRP 7.8. increased dose of oral metoprolol. start by mouth Cardizem. 09/19- patient converted to sinus rhythm. pyuria on UA. Febrile at 100. Started on antibiotic coverage. discontinued diltiazem. continue metoprolol for hypertension. DC anticoagulation unless evidence of paroxysmal A. fib. no other concerns per staff. Patient intimately confused. Discussed treatment plan including CT results with family. Anticipate discharge in 24 hours if afebrile and clinically improved. urine cultures pending 09/20-patient doing remarkably better. Fever defervesced. Continue antibiotics for additional 3 days. Discharging home. Recommend aspirin/statin for multiple lacunar CVA n CT head/future stroke prophylaxis. family at bedside. No active concerns. Currently in sinus rhythm. Recommend follow-up with primary care physician/cardiology Discharge diagnosis: A. fib with RVR - Time Spent with Patient Total time spent providing and/or coordinating discharge services: Medical - DS: Exam - Constitutional Vitals: Vital Signs Temp Pulse Resp BP Pulse Ox 09/20/16 08:00 99.1 F 16 138/85 98 09/20/16 04:00 98.9 F 87 19 130/88 09/20/16 00:00 99.2 F 77 18 145/89 98 09/19/16 19:37 98.3 F 77 16 123/72 96 09/19/16 19:33 16 98 09/19/16 16:10 98.4 F 16 105/70 98 09/19/16 14:15 99.0 F 09/19/16 12:30 100.0 F H 16 126/77 100 Intake and Output 09/19/16 09/20/16 09/20/16 21:59 05:59 13:59 Intake Total 200 / 200 50 / 50 240 / 240 Output Total 125 / 125 525 / 525 Balance 75 / 75 50 / 50 -285 / -285 Intake: Oral 200 / 200 50 / 50 240 / 240 Output: Void Amount 125 / 125 75 / 75 Urine/Stool Mix 450 / 450 Other: Meal Breakfast Percent of Meal Consumed 25% Feeding Ability Assist with Tray Set Up # Bowel Movements 1 Weight 103 lb 8 oz Medical - DS: Data Labs on day of discharge: Labs from last 24 hours 09/20/16 09/20/16 09/20/16 04:05 04:05 04:05 WBC 9.7 RBC 3.34 L Hgb 9.9 L Hct 28.3 L MCV 84.7 MCH 29.6 MCHC 35.0 RDW 12.5 Plt Count 435 MPV 8.4 Total Counted 100 Seg Neutrophils % 74 Band Neutrophils % Not Reportable Lymphocytes % 22 Monocytes % (Manual) 4 Platelet Estimate Normal RBC Morphology Normal Sodium 140 Potassium 4.5 Chloride 96 Carbon Dioxide 29 Anion Gap 15.0 BUN 25 H Creatinine 0.9 GFR Calculation 65 Glucose 100 Uric Acid 3.2 Calcium 8.7 Phosphorus 3.1 Magnesium 1.9 Total Bilirubin 0.3 Direct Bilirubin < 0.2 GGT 83 H AST 34 ALT 39 Alkaline Phosphatase 152 H Lactate Dehydrogenase 182 Total Protein 6.0 Albumin 3.0 L Globulin 3.0 Albumin/Globulin Ratio 1.0 Triglycerides 59 TSH 1.05 Medical - DS: A/P - Patient/Caregiver Discharge Instructions Activity: increase activity as tolerated, resume usual activities as tolerated Diet: Low Sodium (2gm) Additional Instructions: Follow-up PCP in 5 days continue metoprolol as advised. Discontinue thiazide I recommend primary care physician to check CBC BMP UA as a posthospital follow- up Antibiotics for additional 3 days continue aspirin and statin for stroke prophylaxis Continue aggressive bowel regimen to prevent constipation Continue fall precautions All meals on chair sitting upright at 90 degrees to prevent aspiration Return to ER if worsening fever chills shortness of breath, diarrhea, bleeding Review risk and side effect profile of medications including Aspirin/ antibiotics. Side effect may include mild to severe reaction including bleeding ,rash, diarrhea, cdiff and even which can be prevented by close follow-up with PCP Continue diet and activity as advised Discussed importance of medication adherence Please review medication list with patient prior to discharge Please schedule follow-up with PCP/Providers prior to discharge and provide printouts Portions of this chart may have been created with [employer] voice recognition software. Occasional wrong-word or ?sound-like? substitutions may have occurred due to the inherent limitations of voice recognition software. Please read the chart carefully and recognize, using context, where the substitutions have occurred. CC- PCP Prescriptions: Aspirin [Durlaza] 162.5 mg PO DAILY #60 cap.er.24h Cefdinir 300 mg PO BID #6 capsule Losartan [Cozaar] 100 mg PO DAILY #30 tablet Metoprolol Tartrate [Lopressor] 25 mg PO BID #30 tablet - Problem Maintenance (1) Atrial fibrillation with RVR Status: Acute - Follow up Plan Follow up with: Jose Alberto Read MD [Primary Care Provider] - 09/28/16 11:00 am Rajendra Chowdhury [Physician] - 10/06/16 2:20 pm (Please arrive 15 min. early for paperwork.) Disposition: Home, Self-Care Prognosis: Fair Rehab Potential: Fair I certify that the patient requires SNF services: No Overall status at discharge: patient is progressing back to baseline Medical - DS: Qual - VTE Deep Vein Thrombosis/Pulmonary Embolism Present on Admission: No
== END 2016-09-20 14:00 | disposition home or self-care (01) | DRG 689 ==
LOC: ED 08:42 → ICU 12:33
PROVIDERS: ADMIT Internal Medicine; ATTEND Internal Medicine